=== PATIENT | female | born 1975 | race Caucasian/White ===

== ENCOUNTER 2023-09-15 09:52 | Emergency (ER) | payer BC, OTHER ==
[2023-09-15 09:58] VITALS: BP 128/76; PULSE 88; RESP 18; TEMP 97.8; BMI 27.3
[2023-09-15] MEDS ORDERED: KETOROLAC TROMETHAMINE 30 MG/1 ML VIAL IM ONE (10:32)
[2023-09-15] MEDS ORDERED: KETOROLAC TROMETHAMINE 30 MG/1 ML VIAL ONE (10:53)
[2023-09-15 12:22] LABS: BASO % 0.4 % (0-2.0); EOS % 0.2 % (0-4.5); HEMATOCRIT 37.4 % (32.4-45.2); HEMOGLOBIN 12.9 GM/dL (10.7-15.3); MCH 30.1 pg (25.7-33.7); MCHC 34.6 g/dl (32.0-36.0); MEAN CELL VOLUME 86.9 fl (80-96); MEAN PLT VOLUME 8.3 fl (7.5-11.1); MONO % 7.8 % (3.8-10.2); NEUT % 78.6 % (42.8-82.8); PLATELET COUNT 289 10^3/uL (134-434); RDW 13.7 % (11.6-15.6); WHITE BLOOD COUNT 15.6 K/mm3 (4.0-10.0)
[2023-09-15 12:41] LABS: CALCIUM 9.5 mg/dL (8.5-10.1)
[2023-09-15 12:42] LABS: BLOOD UREA NITROGEN 10.1 mg/dL (7-18)
[2023-09-15 12:45] LABS: CREATININE 0.7 mg/dL (0.55-1.3)
[2023-09-15 12:47] LABS: POTASSIUM 4.2 mmol/L (3.5-5.1)
== END 2023-09-15 13:13 | disposition home or self-care (01) ==
LOC: JERFT 09:52
PROC: 3E0233Z Introduction of Anti-inflammatory into Muscle, Percutaneous Approach (ICD-10-PCS; principal; 2023-09-15)
DX: M25.511 Pain in right shoulder (principal); M75.51 Bursitis of right shoulder; X50.0XXA Overexertion from strenuous movement or load, initial encounter; Y93.01 Activity, walking, marching and hiking
CPT/HCPCS: 36415; 73030-TC-RT-FY; 73200-TC-RT; 80048; 85025; 99285-25

== ENCOUNTER 2024-03-29 09:28 | Emergency (ER) | payer BC ==
[2024-03-29 09:49] VITALS: BP 125/77; PULSE 87; RESP 18; TEMP 98.1; BMI 27.3
[2024-03-29] MEDS ORDERED: KETOROLAC TROMETHAMINE 15 MG/ML VIAL ONE (10:13)
[2024-03-29] MEDS: KETOROLAC TROMETHAMINE 15 MG/ML VIAL IVPUSH ONE (10:15)
[2024-03-29 10:19] LABS: HEMATOCRIT 39.9 % (32.4-45.2); HEMOGLOBIN 13.2 G/dL (10.7-15.3); MCH 29.6 pg (25.7-33.7); MCHC 33.1 g/dl (32.0-36.0); MEAN CELL VOLUME 89.4 fl (80-96); MEAN PLT VOLUME 8.4 fl (7.5-11.1); PLATELET COUNT 239.3 10^3/uL (134-434); RBC 4.46 10^6/uL (3.60-5.2); RDW 13.8 % (11.6-15.6); WHITE BLOOD COUNT 7.4 10^3/uL (4.0-10.8)
[2024-03-29 10:25] LABS: PLATELET ESTIMATE ADEQUATE
[2024-03-29 10:37] LABS: ALBUMIN 4.4 g/dl (3.4-5.0); ALK PHOS 77 U/L (45-117); ANION GAP 9 mmol/L (4-13); BILIRUBIN,TOTAL 0.5 mg/dl (0.2-1); CALCIUM 9.7 mg/dl (8.5-10.1); CHLORIDE 104 mmol/L (98-107); CO2 27 mmol/L (21-32); CREATININE 0.7 mg/dl (0.6-1.3); GLUCOSE,RANDOM 109 mg/dl (74-106); POTASSIUM 3.7 mmol/L (3.5-5.1); SGOT/AST 11 U/L (15-37); SGPT/ALT 5 U/L (7-52); SODIUM 140 mmol/L (136-145); TOT PROT 6.8 g/dl (6.4-8.2)
== END 2024-03-29 11:23 | disposition home or self-care (01) ==
LOC: FER 09:28
PROC: 3E0333Z Introduction of Anti-inflammatory into Peripheral Vein, Percutaneous Approach (ICD-10-PCS; principal; 2024-03-29)
DX: S27.321A Contusion of lung, unilateral, initial encounter (principal); R07.1 Chest pain on breathing; R06.02 Shortness of breath; W50.1XXA Accidental kick by another person, initial encounter
CPT/HCPCS: 36415; 71045-TC-FY; 80053; 84484; 85027; 93005; 99285-25